=== PATIENT | male | born 1980 | race African-American/Black ===

== ENCOUNTER 2017-03-27 11:48 | Emergency (ER) | payer OTHER ==
--- NOTE | ~2017-03-27 | CR181 ---
[facility] A Service of [facility] & [facility] RADIOLOGY TEXT RESULTS PATIENT: ANAND WOLFF LOCATION: [facility] : 76 UNIT #: [id number] AGE: [address]: Rossy Ghosh APRN SEX: M ORDER DR: [id number] [facility] [address] [place], [place] [address] [id number] E MR#: [id number] Acc #: [id number] NAME: ANAND WOLFF : 1980 SEX: M STUDY DATE/TIME: 03/27/2017 12:37 UNIT: [facility] ROOM: STUDY DESCRIPTION: CR Lumbar Spine 2 or 3 Views Attending Physician: Rossy Ghosh A.P.R.N. Ordering Physician: Saurav Cheek M.D. Primary Care Physician: Yashira Lopez M.D. MEDICAL IMAGING REPORT This report is preliminary unless electronic signature is present EXAM Lumbar spine 3 views INDICATIONS Minus low back pain for 4 days. No comparisons. FINDINGS Vertebral body heights and alignment are maintained. The disc spaces are preserved. IMPRESSION Negative Dictated by... Shukri Tuttle M.D. THIS IS AN ELECTRONICALLY VERIFIED REPORT Shukri Tuttle M.D. at 03/28/2017 7:14 AM MAEGAN/mackenzie TD: 03/27/2017 16:28 JOB #: [id number] MEDICAL IMAGING REPORT Page 1 of 1 COPY
== END 2017-03-27 13:10 | disposition home or self-care (01) ==
LOC: CED 11:48 → CFTX 11:48
DX: S33.5XXA Sprain of ligaments of lumbar spine, initial encounter (principal); I10 Essential (primary) hypertension; X50.1XXA Overexertion from prolonged static or awkward postures, initial encounter; Y92.9 Unspecified place or not applicable
CPT/HCPCS: 72100; 96372; 99283; J1885